=== PATIENT | female | born 1960 | race African-American/Black ===

== ENCOUNTER → 2017-10-30 | Outpatient (CLI) | payer OTHER ==
[~2017-10-30] MED LIST: CENTRUM SILVER1 EAC4 PO; ERY-TAB500 MG PO; GLUCOPHAGE XR500 MG PO; HYDROCHLOROTH12.5 M1 PO; HYDROCHLOROTHIA25 M2 PO; MIDRIN CAPSULE1 CAP PO; NOHOMEMEDICATIONS; OXYCODONE PO; PERCOCET 10-321 EACH OR; PRAVACHOL40 MG PO; PROTONIX40 M2 PO; PULMICORT FLEX90 MCG INH; TIZANIDINE HCL4 M1 PO; TOPROL XL100 MG PO; ZOFRAN ODT4 M1 PO
== END ==
LOC: RAD 02:12
DX: Z12.31 Encounter for screening mammogram for malignant neoplasm of breast (principal)